=== PATIENT | male | born 1960 | race Hispanic/Latino ===

== ENCOUNTER 2017-12-03 22:24 | Emergency (ER) | payer OTHER ==
[2017-12-03] MEDS ORDERED: NA CHLORIDE 0.9% 1,000 ML ONE (23:07)
[2017-12-03] MEDS ORDERED: CEFTRIAXONE/SWI 1gm 1 GM/10 ML SYR ONE (23:38)
[2017-12-03 23:41] LABS: Absolute Lymphocytes (CBC) 1.2 K/uL (0.7-4.9); Absolute Monocytes 0.7 K/uL (0.1-1.3); Absolute Neutrophil 5.2 K/uL (1.8-8.0); Basophils % 0.7 % (0-1.3); Eosinophils % 1.6 % (0-4.4); Lymphocytes % 15.9 % (15.3-44.8); MCH 29.4 pg (27.0-35.0); MCV 88.9 fL (80-100); MPV 8.6 fL (7.6-11.3); Monocytes % 10.1 % (3.3-12.3); RBC Red Blood Cell Count 3.93 M/uL (4.33-5.43)
[2017-12-03 23:45] LABS: Protime INR 1.13
[2017-12-03 23:52] LABS: Potassium 3.3 mEq/L (3.6-5.0)
[2017-12-03 23:56] LABS: Albumin 3.9 g/dL (3.2-5.5); Bilirubin Total 0.7 mg/dL (0.3-1.2); Protein, Total 7.8 g/dL (6.0-8.3)
--- NOTE | 2017-12-04 01:10 | ER ---
Nurse's Notes [facility] Name: Eduardo Cole Age: 56 yrs Sex: Male : 1960 Arrival Date: 12/03/2017 Time: 22:25 Bed 25 Private MD: Diagnosis: Hematuria-12x11.5x9.2 cm mass left kidney, neoplasm;Anemia, unspecified;Unspecified kidney failure Presentation: 12/03 22:38 Presenting complaint: Patient states: he has not urinated since 1130 this morning went bb to PCP approx 1530 this afternoon in [place] and had blood work done, started on flomax but is still unable to urinate. Transition of care: patient was not received from another setting of care. Onset of symptoms was December 03, 2017. Risk Assessment: Do you want to hurt yourself or someone else? Patient reports no desire to harm self or others. Initial Sepsis Screen: Does the patient meet any 2 criteria? No. Patient's initial sepsis screen is negative. Does the patient have a suspected source of infection? No. Patient's initial sepsis screen is negative. Care prior to arrival: None. 22:38 Method Of Arrival: Ambulatory bb 22:38 Acuity: LAUREN 3 bb Triage Assessment: 12/04 01:15 General: Appears distressed, uncomfortable, slender, well groomed, well developed, well tl3 nourished, Behavior is calm, cooperative, appropriate for age. Historical: - Allergies: 12/03 22:42 No Known Allergies; bb - Home Meds: 22:42 Flomax 0.4 mg Oral cp24 1 cap once daily [Active]; bb - PMHx: 22:42 None; bb - PSHx: 22:42 None; bb - Immunization history:: Adult Immunizations unknown. - Social history:: Smoking status: Patient/guardian denies using tobacco, Patient uses alcohol, occasionally. Patient/guardian denies using street drugs. - Ebola Screening: : No symptoms or risks identified at this time. - Family history:: not pertinent. Screenin:05 Abuse screen: Denies threats or abuse. Nutritional screening: No deficits noted. tl3 Tuberculosis screening: No symptoms or risk factors identified. Fall Risk None identified. Assessment: 23:02 Reassessment: pt states he started having left flank pain on Saturday but noticed this bb afternoon at approx 1330 blood in his urine, went to his PCP this afternoon and was told he needed to schedule a CT scan. Pt states he had kidney stone approx 12 years ago. 23:05 General: Appears distressed, uncomfortable, slender, well groomed, well developed, well tl3 nourished. Pain: Complains of pain in right lower quadrant and left lower quadrant. Neuro: No deficits noted. Level of Consciousness is awake, alert, obeys commands, Oriented to person, place, time, situation, Appropriate for age. Cardiovascular: No deficits noted. Heart tones S1 S2 present Patient's skin is warm and dry. Respiratory: No deficits noted. Airway is patent Trachea midline Respiratory effort is even, unlabored, Respiratory pattern is regular, symmetrical, Breath sounds are clear bilaterally. GI: No deficits noted. No signs and/or symptoms were reported involving the gastrointestinal system. : Villarreal in place Urine is bindu blood, 800ml returned with placement. EENT: No signs and/or symptoms were reported regarding the EENT system. Derm: No signs and/or symptoms reported regarding the dermatologic system. Musculoskeletal: No signs and/or symptoms reported regarding the musculoskeletal system. 12/04 00:24 Reassessment: Patient appears in no apparent distress at this time. No changes from tl3 previously documented assessment. Patient and/or family updated on plan of care and expected duration. Pain level reassessed. Patient is alert, oriented x 3, equal unlabored respirations, skin warm/dry/pink. 01:13 Reassessment: Patient appears in no apparent distress at this time. No changes from tl3 previously documented assessment. Patient and/or family updated on plan of care and expected duration. Pain level reassessed. Patient is alert, oriented x 3, equal unlabored respirations, skin warm/dry/pink. 03:02 Reassessment: Report called to Mariusz Fox RN, SBAR used, all questions answered.mb3 Vital Signs: 12/03 22:42 BP 164 / 105; Resp 20 S; Temp 97.7(O); Pulse Ox 97% on R/A; Weight 86.18 kg (R); Height bb 5 ft. 10 in. (178 cm) (R); Pain 10/10; 12/04 00:24 BP 125 / 77; Pulse 65; Resp 18; Pulse Ox 96% on R/A; tl3 00:51 BP 122 / 76; Pulse 65; Resp 18; Pulse Ox 95% ; tl3 02:09 BP 139 / 87; Pulse 81; Resp 18; Pulse Ox 98% on R/A; mb3 02:58 BP 143 / 90; Pulse 79; Resp 18; Pulse Ox 99% on R/A; mb3 12/03 22:42 Body Mass Index 27.20 (86.18 kg, 178 cm) bb ED Course: 12/03 22:25 Patient arrived in ED. am2 22:29 Monique Krueger, KRAIG is Primary Nurse. tl3 22:39 Tad Lockwood MD is Attending Physician. frances 22:41 Triage completed. bb 22:42 Arm band placed on Patient placed in an exam room, on a stretcher, on pulse oximetry. bb Family accompanied patient. 23:05 Resting quietly. tl3 23:05 Patient has correct armband on for positive identification. Placed in gown. Bed in low tl3 position. Call light in reach. Side rails up X 1. Adult w/ patient. Warm blanket given. 23:05 No provider procedures requiring assistance completed. Villarreal cath inserted, using tl3 sterile technique, 16 Fr., by in, balloon inflated, to gravity drainage, urine specimen collected. Inserted saline lock: 20 gauge in left forearm, using aseptic technique. Blood collected. 23:22 Patient moved to NE via wheelchair. tl3 23:24 CT completed. Patient moved back from NE. cw1 23:45 CT Stone Protocol In Process Unspecified. EDMS 12/04 03:02 Patient transferred, IV remains in place. mb3 Administered Medications: 12/03 23:15 Drug: NS 0.9% 1000 ml Route: IV; Rate: 1 bolus; Site: left forearm; Delivery: Primary tl3 tubing; 12/04 00:20 Follow up: IV Status: Completed infusion; IV Intake: 1000ml tl3 02:58 Follow up: IV Status: Completed infusion; IV Intake: 1000ml mb3 12/03 23:15 Drug: Rocephin - (cefTRIAXone) 1 grams Route: IVPB; Infused Over: 5 mins; Site: left tl3 forearm; Delivery: Primary tubing; 12/04 01:07 Follow up: Response: No adverse reaction tl3 02:57 Follow up: Response: No adverse reaction mb3 02:57 Follow up: Response: No adverse reaction mb3 02:58 Follow up: IV Status: Completed infusion; IV Intake: 50ml mb3 02:00 Drug: NS 0.9% 1000 ml Route: IV; Rate: 125 ml/hr; Site: left forearm; mb3 02:53 Follow up: IV Status: Infusion continued upon transfer; IV Intake: 125ml mb3 02:03 Drug: fentaNYL (PF) 50 mcg Route: IVP; Site: left forearm; mb3 02:53 Follow up: Response: No adverse reaction; Pain is decreased mb3 02:03 Drug: Zofran 4 mg Route: IVP; Site: left forearm; mb3 02:52 Follow up: Response: No adverse reaction mb3 Intake: 00:20 IV: 1000ml; Total: 1000ml. tl3 02:53 IV: 125ml; Total: 1125ml. mb3 02:58 IV: 50ml; Total: 1175ml. mb3 02:58 IV: 1000ml; Total: 2175ml. mb3 Output: 12/03 23:00 Urine: 800ml (Villarreal); Total: 800ml. tl3 12/04 01:13 Urine: 1300ml (Villarreal); Total: 2100ml. tl3 Outcome: 01:08 ER care complete, transfer ordered by MD. daniels 03:02 Transferred by ground EMS to [facility], Transfer form completed. mb3 X-rays sent w/ patient. 03:02 Condition: stable 03:02 Instructed on the need for transfer. 03:04 Patient left the ED. mb3 Signatures: Dispatcher [employer] Tad Ambriz MD MD cha Ballard, Brenda, RN RN Indigo Figueredo cw1 Florina Keenan amMonique Tay, RN RN tl3 Vignesh Willis RN RN mb3
--- NOTE | 2017-12-04 01:10 | EDPHYS ---
Physician Documentation [facility] Name: Eduardo Cole Age: 56 yrs Sex: Male : 1960 Arrival Date: 12/03/2017 Time: 22:25 Bed 25 Private MD: ED Physician Tad Lockwood HPI: 12/03 23:05 This 56 yrs old Male presents to ER via Ambulatory with complaints of Urinary frances Retention. 23:05 The patient presents with urinary symptoms, dysuria, urinary frequency, hesitancy to frances initiate urine stream, incontinence of urine, unable to void. Onset: The symptoms/episode began/occurred just prior to arrival, today. Modifying factors: The symptoms are alleviated by nothing, the symptoms are aggravated by nothing. Severity of symptoms: At their worst the symptoms were mild, moderate, in the emergency department the symptoms are unchanged. The patient has not experienced similar symptoms in the past. Historical: - Allergies: 22:42 No Known Allergies; bb - Home Meds: 22:42 Flomax 0.4 mg Oral cp24 1 cap once daily [Active]; bb - PMHx: 22:42 None; bb - PSHx: 22:42 None; bb - Immunization history:: Adult Immunizations unknown. - Social history:: Smoking status: Patient/guardian denies using tobacco, Patient uses alcohol, occasionally. Patient/guardian denies using street drugs. - Ebola Screening: : No symptoms or risks identified at this time. - Family history:: not pertinent. ROS: 23:05 Constitutional: Negative for fever, chills, and weight loss, Eyes: Negative for injury, frances pain, redness, and discharge, ENT: Negative for injury, pain, and discharge, Neck: Negative for injury, pain, and swelling, Cardiovascular: Negative for chest pain, palpitations, and edema, Respiratory: Negative for shortness of breath, cough, wheezing, and pleuritic chest pain, Abdomen/GI: Negative for abdominal pain, nausea, vomiting, diarrhea, and constipation, Back: Negative for injury and pain, : Negative for injury, bleeding, discharge, and swelling, MS/Extremity: Negative for injury and deformity, Skin: Negative for injury, rash, and discoloration, Neuro: Negative for headache, weakness, numbness, tingling, and seizure. Exam: 23:06 Constitutional: This is a well developed, well nourished patient who is awake, alert, frances and in no acute distress. Head/Face: Normocephalic, atraumatic. Eyes: Pupils equal round and reactive to light, extra-ocular motions intact. Lids and lashes normal. Conjunctiva and sclera are non-icteric and not injected. Cornea within normal limits. Periorbital areas with no swelling, redness, or edema. ENT: Nares patent. No nasal discharge, no septal abnormalities noted. Tympanic membranes are normal and external auditory canals are clear. Oropharynx with no redness, swelling, or masses, exudates, or evidence of obstruction, uvula midline. Mucous membranes moist. Neck: Trachea midline, no thyromegaly or masses palpated, and no cervical lymphadenopathy. Supple, full range of motion without nuchal rigidity, or vertebral point tenderness. No Meningismus. Chest/axilla: Normal chest wall appearance and motion. Nontender with no deformity. No lesions are appreciated. Cardiovascular: Regular rate and rhythm with a normal S1 and S2. No gallops, murmurs, or rubs. Normal PMI, no JVD. No pulse deficits. Respiratory: Lungs have equal breath sounds bilaterally, clear to auscultation and percussion. No rales, rhonchi or wheezes noted. No increased work of breathing, no retractions or nasal flaring. Abdomen/GI: Soft, non-tender, with normal bowel sounds. No distension or tympany. No guarding or rebound. No evidence of tenderness throughout. Back: No spinal tenderness. No costovertebral tenderness. Full range of motion. Male : Normal genitalia with no discharge or lesions. Skin: Warm, dry with normal turgor. Normal color with no rashes, no lesions, and no evidence of cellulitis. MS/ Extremity: Pulses equal, no cyanosis. Neurovascular intact. Full, normal range of motion. Neuro: Awake and alert, GCS 15, oriented to person, place, time, and situation. Cranial nerves II-XII grossly intact. Motor strength 5/5 in all extremities. Sensory grossly intact. Cerebellar exam normal. Normal gait. Vital Signs: 22:42 BP 164 / 105; Resp 20 S; Temp 97.7(O); Pulse Ox 97% on R/A; Weight 86.18 kg (R); Height bb 5 ft. 10 in. (178 cm) (R); Pain 10; 12/04 00:24 BP 125 / 77; Pulse 65; Resp 18; Pulse Ox 96% on R/A; tl3 00:51 BP 122 / 76; Pulse 65; Resp 18; Pulse Ox 95% ; tl3 02:09 BP 139 / 87; Pulse 81; Resp 18; Pulse Ox 98% on R/A; mb3 02:58 BP 143 / 90; Pulse 79; Resp 18; Pulse Ox 99% on R/A; mb3 12/03 22:42 Body Mass Index 27.20 (86.18 kg, 178 cm) bb MDM: 12/03 22:39 Patient medically screened. [facility] 23:07 Data reviewed: vital signs, nurses notes, lab test result(s), radiologic studies, CT [facility] scan. 12/03 22:42 Order name: Urine Culture [facility] 12/03 23:04 Order name: CBC with Diff; Complete Time: 01:31 [facility] 12/03 23:04 Order name: Comprehensive Metabolic Panel; Complete Time: 01: [facility] 12/03 23:04 Order name: PT-INR; Complete Time: 01: [facility] 12/03 23:04 Order name: CT Stone Protocol [facility] 12/03 23:28 Order name: Ptt, Activated; Complete Time: 01: [facility] 12/03 22:42 Order name: Urine Dipstick-Ancillary (obtain specimen); Complete Time: 00:23 [facility] 12/03 22:42 Order name: Villarreal: note pvr; Complete Time: 23:06 [facility] Administered Medications: 23:15 Drug: NS 0.9% 1000 ml Route: IV; Rate: 1 bolus; Site: left forearm; Delivery: Primary tl3 tubing; 12/04 00:20 Follow up: IV Status: Completed infusion; IV Intake: 1000ml tl3 02:58 Follow up: IV Status: Completed infusion; IV Intake: 1000ml 3 12/03 23:15 Drug: Rocephin - (cefTRIAXone) 1 grams Route: IVPB; Infused Over: 5 mins; Site: left tl3 forearm; Delivery: Primary tubing; 12/04 01:07 Follow up: Response: No adverse reaction tl3 02:57 Follow up: Response: No adverse reaction mb3 02:57 Follow up: Response: No adverse reaction mb3 02:58 Follow up: IV Status: Completed infusion; IV Intake: 50ml mb3 02:00 Drug: NS 0.9% 1000 ml Route: IV; Rate: 125 ml/hr; Site: left forearm; mb3 02:53 Follow up: IV Status: Infusion continued upon transfer; IV Intake: 125ml mb3 02:03 Drug: fentaNYL (PF) 50 mcg Route: IVP; Site: left forearm; mb3 02:53 Follow up: Response: No adverse reaction; Pain is decreased mb3 02:03 Drug: Zofran 4 mg Route: IVP; Site: left forearm; mb3 02:52 Follow up: Response: No adverse reaction mb3 Disposition: 12/04/17 01:08 Transfer ordered to [facility]. Diagnosis are Hematuria - 12x11.5x9.2 cm mass left kidney, neoplasm, Anemia, unspecified, Unspecified kidney failure. - Reason for transfer: Higher level of care. - Accepting physician is to [facility]. - Condition is Fair. - Problem is new. - Symptoms have improved. Signatures: Dispatcher [employer] EDTad Dockery MD MD cha Ballard, Brenda, RN RN Monique Munroe, KRAIG RN tl3 Vignesh Willis RN RN mb3 Corrections: (The following items were deleted from the chart) 01:34 01:08 12/04/2017 01:08 Transfer ordered to [facility]. Diagnosis is frances Hematuria - 12x11.5x9.2 cm mass left kidney, neoplasm. Reason for transfer: Higher level of care. Accepting physician is to [facility]. Condition is Fair. Problem is new. Symptoms have improved. [facility] 03:04 01:34 12/04/2017 01:08 Transfer ordered to [facility]. Diagnosis is mb3 Hematuria - 12x11.5x9.2 cm mass left kidney, neoplasm; Anemia, unspecified; Unspecified kidney failure. Reason for transfer: Higher level of care. Accepting physician is to [facility]. Condition is Fair. Problem is new. Symptoms have improved. frances
[2017-12-04] MEDS ORDERED: FENTANYL CITR 100 MCG/2 ML ONE (02:00)
[2017-12-04] MEDS ORDERED: ONDANSETRON 4 MG/2 ML VIAL ONE (02:01)
[2017-12-04] MEDS ORDERED: NA CHLORIDE 0.9% 1,000 ML ONE (02:15)
--- NOTE | 2017-12-04 08:31 | RAD REPORT ---
EXAM DESCRIPTION: CT - Stone Protocol - 12/04/2017 6:03 am CLINICAL HISTORY: Flank pain. Hematuria. COMPARISON: None. TECHNIQUE: Axial images were obtained without oral or IV contrast. Lack of contrast limits solid org an and vascular assessment. The [id number] spans the entirety of the system partially obscuring uppermost abdomen and lung bases. Coronal reformatted images were obtained and reviewed. All CT scans are performed using dose optimization technique as appropriate and may include automated exposure control or mA/KV adjustment according to patient size. FINDINGS: The lower lung sharp are clear. Imaged portions of the liver and spleen show no suspicious findings on non-contrast imaging. The panc reas and adrenal glands are normal. A very large mass is present involving the superior aspect of the left kidney measuring 12.7 x 9.0 cm . Areas of calcification are present within the mass. Hyperdense material within the inferior pelvica liceal system on the left likely represent blood product. Blood product/blood clot also present in th e urinary bladder with Villarreal catheter in place. No right-sided stone or hydronephrosis. No bowel obstruction, free air, free fluid or abscess. Normal appendix noted. No significant bony abnormality. IMPRESSION: Very large mass involving the left kidney most compatible with RCC. Full assessment is n ot possible due to lack of IV contrast. Blood product is present in the inferior collecting system of the left kidney as well as the urinary bladder.
== END 2017-12-04 03:04 | disposition short-term general hospital (02) ==
LOC: ER 22:24
DX: N28.89 Other specified disorders of kidney and ureter (principal); D64.9 Anemia, unspecified; N19 Unspecified kidney failure
CPT/HCPCS: 36415; 51702; 74176; 76377; 80053; 85025; 85610; 85730; 87086; 87088; 96361; 96365; 96366; 96375; 99285; J0696; J2405; J3010; J7030

== ENCOUNTER 2024-11-13 18:51 | Emergency (ER) | payer OTHER ==
[2024-11-13] MEDS ORDERED: LIDOCAINE VISCOUS 2% 10ML ORAL SOLN ONE (19:46)
--- NOTE | 2024-11-13 19:56 | ER ---
Nurse's Notes [facility] Name: Eduardo Montesinos Age: 63 yrs Sex: Male : 1960 Arrival Date: 11/13/2024 Time: 18:51 Bed 6 Private MD: Diagnosis: Left first digit paronynchia Presentation: 11/13 19:01 Chief complaint: Patient states: INGROWN NAIL AT THE RIGHT THUMB. bp 19:01 Coronavirus screen: Client denies travel out of the [place] in the last 14 days. Ebola bp Screen: No symptoms or risks identified at this time. Initial Sepsis Screen: Does the patient meet any 2 criteria? No. Patient's initial sepsis screen is negative. Does the patient have a suspected source of infection? No. Patient's initial sepsis screen is negative. Risk Assessment: Do you want to hurt yourself or someone else? Patient reports no desire to harm self or others. Onset of symptoms was November 13, 2024. 19:01 Method Of Arrival: Ambulatory bp 19:01 Acuity: LAUREN 3 bp Triage Assessment: 19:01 General: Appears comfortable, Behavior is calm, cooperative. Pain: Complains of pain in bp dorsal aspect of distal phalanx of right thumb Pain currently is 7 out of 10 on a pain scale. Neuro: Level of Consciousness is awake, alert, obeys commands, Oriented to person, place, time, situation. Cardiovascular: Capillary refill < 3 seconds Patient's skin is warm and dry. Respiratory: Airway is patent Respiratory effort is even, unlabored, Respiratory pattern is regular, symmetrical. GI: No signs and/or symptoms were reported involving the gastrointestinal system. Abdomen is round non-distended. : No signs and/or symptoms were reported regarding the genitourinary system. Derm: Wound noted dorsal aspect of distal phalanx of right thumb Wound is SWOLLEN , NO DRAINAGE. Musculoskeletal: Swelling present in dorsal aspect of distal phalanx of right thumb. Historical: - Allergies: : No Known Allergies; bp - Home Meds: : Flomax 0.4 mg Oral cp24 1 cap once daily [Active]; bp - PMHx: 19: kidney CA; Hypothyroidism; bp - PSHx: : Nephrectomy; bp - Immunization history:: Adult Immunizations up to date. - Infectious Disease History:: Denies. - Social history:: Smoking status: Patient denies any tobacco usage or history of. Screenin:21 [facility] ED Fall Risk Assessment (Adult) History of falling in the last 3 months, bp including since admission No falls in past 3 months (0 pts) Confusion or Disorientation No (0 pts) Intoxicated or Sedated No (0 pts) Impaired Gait No (0 pts) Mobility Assist Device Used No (0 pt) Altered Elimination No (0 pt) Score/Fall Risk Level 0 - 2 = Low Risk Oriented to surroundings, Maintained a safe environment, Educated pt \T\ family on fall prevention, incl call for assistance when getting out of bed, Hourly rounding (assess needs \T\ fall precautionary measures) done. Abuse screen: Denies threats or abuse. Denies injuries from another. Nutritional screening: No deficits noted. Tuberculosis screening: No symptoms or risk factors identified. Assessment: 20:34 Reassessment: Patient and/or family updated on plan of care and expected duration. Pain bp level reassessed. Patient is alert, oriented x 3, equal unlabored respirations, skin warm/dry/pink. Vital Signs: 19:01 BP 132 / 91; Pulse 61; Resp 17 S; Temp 98.2(O); Pulse Ox 100% ; Weight 79.38 kg; Height bp 5 ft. 8 in. ; 20:34 BP 124 / 67; Pulse 62; Resp 17 S; Pulse Ox 99% on R/A; bp 19:01 Body Mass Index 26.61 (79.38 kg, 172.72 cm) bp ED Course: 18:53 Patient arrived in ED. mr 19:01 Patient has correct armband on for positive identification. Bed in low position. Call bp light in reach. Side rails up X 1. 19:01 Arm band placed on right wrist. bp 19:04 La Nena Romero MD is Attending Physician. gb1 19:18 Triage completed. bp 19:47 James Lubin, KRAIG is Primary Nurse. bp 20:33 No provider procedures requiring assistance completed. Patient did not have IV access bp during this emergency room visit. 20:34 Provided Education on: WOUND CARE . bp Administered Medications: 19:48 Drug: Lidocaine Mucous Membrane Gel 2 % 1 application Mucous Membrane once Route: bp Mucous Membrane; 20:33 Follow up: Response: No adverse reaction bp 20:20 Drug: Acetaminophen PO 1000 mg PO once Route: PO; bp 20:33 Follow up: Response: No adverse reaction; Marked relief of symptoms bp Medication: 19:21 VIS not applicable for this client. bp Outcome: 19:56 Discharge ordered by . gb1 20:33 Discharged to home ambulatory, bp 20:33 Condition: stable 20:33 Discharge instructions given to patient, Instructed on discharge instructions, follow up and referral plans. medication usage, Demonstrated understanding of instructions, follow-up care, medications, Prescriptions given X 1, 20:35 Patient left the ED. bp Signatures: Yojana Ramirez, Reg Reg James Root, RN RN bp Heather, MD ANNIE Deutsch gb1
--- NOTE | 2024-11-13 19:56 | EDPHYS ---
Physician Documentation [facility] Name: Eduardo Montesinos Age: 63 yrs Sex: Male : 1960 Arrival Date: 11/13/2024 Time: 18:51 Bed 6 Private MD: ED Physician La Nena Romero HPI: 11/13 19:49 This 63 yrs old Male presents to ER via Ambulatory with complaints of Infected gb1 thumb. 19:49 63-year-old male with a right painful thumb is swollen for last 3 days. It is very gb1 tender to the touch. No trauma to the thumb.. Historical: - Allergies: 19:01 No Known Allergies; bp - Home Meds: 19: Flomax 0.4 mg Oral cp24 1 cap once daily [Active]; bp - PMHx: 19:01 kidney CA; Hypothyroidism; bp - PSHx: 19:01 Nephrectomy; bp - Immunization history:: Adult Immunizations up to date. - Infectious Disease History:: Denies. - Social history:: Smoking status: Patient denies any tobacco usage or history of. Exam: 19:49 Constitutional: This is a well developed, well nourished patient who is awake, alert, gb1 and in no acute distress. Head/Face: Normocephalic, atraumatic. Cardiovascular: Regular rate and rhythm with a normal S1 and S2. No gallops, murmurs, or rubs. Normal PMI, no JVD. No pulse deficits. Respiratory: Lungs have equal breath sounds bilaterally, clear to auscultation and percussion. No rales, rhonchi or wheezes noted. No increased work of breathing, no retractions or nasal flaring. MS/ Extremity: Pulses equal, no cyanosis. Neurovascular intact. Full, normal range of motion. The cuticle to the right thumb is fluctuant and indurated and very tender to the touch. There is visible pus underneath the right first digit cuticle. The digit itself also looks swollen and tender but the range of motion is normal. No obvious deformities. Vital Signs: 19:01 BP 132 / 91; Pulse 61; Resp 17 S; Temp 98.2(O); Pulse Ox 100% ; Weight 79.38 kg; Height bp 5 ft. 8 in. ; 20:34 BP 124 / 67; Pulse 62; Resp 17 S; Pulse Ox 99% on R/A; bp 19:01 Body Mass Index 26.61 (79.38 kg, 172.72 cm) bp Procedures: 20:07 I \T\ D: Incision and drainage was performed for an abscess of the right right hand gb1 Prepped with Betadine, Anesthetized with Topical viscous jelly lidocaine 2%. Incised with Blunt 18-gauge needle. Drained small amount purulent fluid. Packed with None. Dressing: sterile 4x4 gauze, the patient tolerated the procedure well. MDM: 19:06 Medical Screening Exam initiated gb1 19:49 Data reviewed: vital signs, nurses notes. ED course: 63-year-old male with a right gb1 first digit paronychia. The digit was incised here and drained by me. Discharge home with explicit return precautions.. Administered Medications: 19:48 Drug: Lidocaine Mucous Membrane Gel 2 % 1 application Mucous Membrane once Route: bp Mucous Membrane; 20:33 Follow up: Response: No adverse reaction bp 20:20 Drug: Acetaminophen PO 1000 mg PO once Route: PO; bp 20:33 Follow up: Response: No adverse reaction; Marked relief of symptoms bp Disposition Summary: 11/13/24 19:56 Discharge Ordered Notes: Location: Home gb1 Condition: Stable gb1 Problem: new gb1 Symptoms: have improved gb1 Diagnosis - Left first digit paronynchia gb1 Followup: gb1 - With: Private Physician - When: - Reason: Wound Recheck Discharge Instructions: - Discharge Summary Sheet gb1 - Paronychia, [id number] gb1 Forms: - Medication Reconciliation Form gb1 - Antibiotic Education gb1 - Prescription Opioid Use gb1 - Patient Portal Instructions gb1 - Leadership Thank You Letter gb1 Prescriptions: - Doxycycline Hyclate 100 mg Oral Tablet - take 1 tablet ORAL route every 12 hours; 20 tablet; Refills: 0, Product gb1 Selection Permitted Signatures: James Lubin, RN RN bp La Nena Romero MD MD gb1
[2024-11-13] MEDS ORDERED: ACETAMINOPHEN 500 MG TAB ONE (20:29)
[2024-11-13 20:40] VITALS: TEMP 98.2
[2024-11-13 20:41] VITALS: BP 124/67; O2SAT 99
== END 2024-11-13 20:35 | disposition home or self-care (01) ==
LOC: ER 18:51
PROC: 0H9FXZZ Drainage of Right Hand Skin, External Approach (ICD-10-PCS; principal; 2024-11-13)
DX: L03.011 Cellulitis of right finger (principal)
CPT/HCPCS: 99283